=== PATIENT | male | born 1990 | race Caucasian/White ===

== ENCOUNTER 2020-10-02 08:10 | Emergency (ER) | payer OTHER, SELFPAY ==
[2020-10-02 08:22] VITALS: BP 209/102; PULSE 75; RESP 18; TEMP 36.6; O2SAT 97; BMI 38.5
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
--- NOTE | 2020-10-02 08:28 | XR_ITS ---
WS: [id number] Exam: XR wrist LT min 3V* [id number] Date/Time of Exam: 10/02/2020 8:32 AM Reason For Exam: pain There are no fractures, soft tissue swelling, or unusual calcifications. The wrist shows normal bony alignment. There is no irregularity of the bony architecture. XR/XR wrist LT min 3V* [id number] IMPRESSION: Negative left wrist.
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
[2020-10-02 08:48] LABS: Basophils % 0.6 %; Eosinophils # 0.1 10^3/uL (0.0-0.8); Eosinophils % 1.1 %; Lymphocytes % 27.4 %; Mean Corpuscular HGB Conc 32.6 g/dL (30.0-36.0); Mean Corpuscular Hemoglobin 27.5 pg (28.0-34.0); Mean Corpuscular Volume 84.3 fL (80-94); Mean Platelet Volume 9.4 fL (7.4-10.4); Monocytes # 0.5 10^3/uL (0.2-0.9); Monocytes % 7.3 %; Neutrophils # 4.55 10^3/uL (1.8-7.7); Neutrophils % 62.9 %; Nucleated Red Blood Cells % 0 %; Platelet Count 194 10^3/cmm (130-400); Red Cell Distribution Width 12.6 % (12.1-15.1); White Blood Count 7.2 10^3/uL (4.0-10.0)
[2020-10-02 08:57] LABS: Add Urine Microscopic? NO; Charge for UA Resulting for Rev
[2020-10-02 08:58] VITALS: RESP 15
[2020-10-02 09:03] LABS: Bilirubin Urine Neg (Negative); Blood Urine Neg (Negative); Glucose Urine UA Norm (Normal); Ketones Urine Negative (Negative); Leukocyte Esterase Urine Negative (Negative); Nitrate Urine Negative (Negative); Protein Urine Neg (Negative); Urine Appearance Clear (CLEAR); Urine Color Yellow (Yellow); Urobilinogen Urine Norm (Negative); pH Urine 7 (5-7)
[2020-10-02] MEDS: iohexol 300 mg/mL 100 mL Btl IV (09:03)
[2020-10-02 09:07] LABS: Alanine Aminotransferase 16 U/L (0-41); Alkaline Phosphatase 74 IU/L (40-130); Anion Gap 12.1 (5-19); Aspartate Amino Transferase 16 U/L (0-40); Blood Urea Nitrogen 14 mg/dL (6-20); Calcium 8.6 mg/dL (8.5-10.5); Carbon Dioxide 24 mmol/L (22-29); Chloride 105 mmol/L (98-107); Globulin 3.2 g/dL (1.3-4.6); Glomerular Filtration Rate 133.3 mL/min (90-130); Glucose 102 mg/dL (65-115); Osmolality Calculated 285 mOsm/kg (285-295); Potassium 4.1 mmol/L (3.5-5.1); Sodium 137 mmol/L (136-145); Total Bilirubin 0.5 mg/dL (0.15-1.2); Total Protein 7.2 g/dL (6.6-8.7)
[2020-10-02 10:38] VITALS: BP 162/80; PULSE 80; RESP 15; O2SAT 98
== END 2020-10-02 10:39 | disposition home or self-care (01) ==
PROVIDERS: Emergency Provider Family Medicine
DX: Z04.1 Encounter for examination and observation following transport accident (principal); V89.2XXA Person injured in unspecified motor-vehicle accident, traffic, initial encounter
CPT/HCPCS: 70450; 71260; 72125; 73110; 74177; 80053; 81003; 85025; 99283; Q9967

== ENCOUNTER 2020-10-13 12:40 | Outpatient (CLI) | payer OTHER, SELFPAY ==
--- NOTE | 2020-10-13 12:48 | MR_ITS ---
WS: [id number] MRI CERVICAL SPINE NONCONTRAST HISTORY: CERVICAL SPINE PAIN COMPARISON: 10/02/2020 CT. Technique: Multiplanar, multisequence noncontrast imaging of the cervical spine. Normal cervical alignment with no compression fracture or significant disc space narrowing. Signal within the cervical cord is normal. Visualized posterior fossa is unremarkable. Craniocervical junction, C1 and C2 relationship, odontoid process and soft tissues are normal. There is mild increased signal in the posterior interspinous ligaments at C5 and C6. No corresponding abnormality seen on the recent CT. C2-C3: Normal. C3-C4: Small LEFT foraminal osteophytes with mild narrowing of the foramen. C4-C5: Mild osteophytic ridging with mild LEFT foraminal narrowing. C5-C6: Small central disc protrusion and foraminal osteophytes contributing to mild bilateral foramin al stenosis. C6-C7: Normal. C7-T1: Normal. MR/MR cervical spin wo con* [id number] IMPRESSION: 1. No acute cervical spine fracture. 2. Edema in the interspinous ligaments at C5 and C6. Probably related to the r ecent trauma. 3. Multilevel small foraminal osteophytes and disc protrusions as above. No se karen stenosis.
== END 2020-10-13 12:41 | disposition home or self-care (01) ==
LOC: RADSHAW 12:43
PROVIDERS: Visit Provider Chiropractor
DX: R60.0 Localized edema (principal); M25.78 Osteophyte, vertebrae; M50.20 Other cervical disc displacement, unspecified cervical region
CPT/HCPCS: 72141

== ENCOUNTER 2024-11-10 22:13 | Emergency (ER) | payer SELFPAY ==
[2024-11-10 22:46] VITALS: BP 129/72; PULSE 90; RESP 17; TEMP 36.9; O2SAT 98; BMI 38.2
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
[2024-11-11] MEDS: tetanus-dipt-pertussis 0.5 mL SDV IM (00:36)
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
[2024-11-11] MEDS: mupirocin oint 22 gm 1 APPLIC TOPICAL (01:38)
[2024-11-11 02:00] VITALS: BP 136/72; PULSE 88; RESP 16; O2SAT 98
== END 2024-11-11 02:01 | disposition home or self-care (01) ==
PROVIDERS: Emergency Provider Emergency Medicine
DX: S80.812A Abrasion, left lower leg, initial encounter (principal); T22.151A Burn of first degree of right shoulder, initial encounter; T24.002A Burn of unspecified degree of unspecified site of left lower limb, except ankle and foot, initial encounter; T24.001A Burn of unspecified degree of unspecified site of right lower limb, except ankle and foot, initial encounter; S61.310A Laceration without foreign body of right index finger with damage to nail, initial encounter; W39.XXXA Discharge of firework, initial encounter
CPT/HCPCS: 12001; 73140; 90471; 90715; 99283; J9999

== ENCOUNTER → 2024-12-03 09:18 | Outpatient (BNVA) | payer OTHER, SELFPAY | PROVIDERS: PCP Family Medicine; Visit Provider Family Medicine | DX: Z13.6 Encounter for screening for cardiovascular disorders (principal) | CPT/HCPCS: 80053; 80061; 84443; 85025 ==